=== PATIENT | male | born 1960 | race African-American/Black ===

== ENCOUNTER 2018-03-11 16:43 | Emergency (ER) | payer MEDICAID ==
[~2018-03-11] VITALS: Ht 157.5 cm; Wt 54.5 kg
[~2018-03-11 16:43] MED LIST: INSU3INS5; LISI-622 PO; METF500T4 PO
[2018-03-11 17:03] LABS: GLUCOSE,POINT OF CARE 257 MG/DL (70-110)
[2018-03-11] MEDS ORDERED: TraMADol HCL 50 MG TABLET PO ONE (17:30)
[2018-03-11 18:27] VITALS: BP 112/62
== END 2018-03-11 18:45 | disposition home or self-care (01) ==
LOC: EMS 16:49
DX: M54.5 Low back pain (principal); G89.29 Other chronic pain; F17.210 Nicotine dependence, cigarettes, uncomplicated; E11.9 Type 2 diabetes mellitus without complications; E78.00 Pure hypercholesterolemia, unspecified; I10 Essential (primary) hypertension; I25.2 Old myocardial infarction; Z86.73 Personal history of transient ischemic attack (TIA), and cerebral infarction without residual deficits
CPT/HCPCS: 82962; 99283; 99406